=== PATIENT | female | born 1975 | race Caucasian/White ===

== ENCOUNTER 2022-03-04 09:54 | Inpatient (IN) ==
[2022-03-04 10:45] LABS: Basophils # (auto) 0.04 K/uL (0-0.2); Basophils % (auto) 0.2 %; Eosinophils # (auto) 0.14 K/uL (0-0.50); Eosinophils % (auto) 0.8 %; Immature Granulocytes # (auto) 0.05 K/uL (0.00-0.02); Immature Granulocytes % (auto) 0.3 %; Lymphocytes # (auto) 2.14 K/uL (1.2-3.4); Lymphocytes % (auto) 12.9 %; Mean Corpuscular Hemoglobin 29.8 pg (25.0-34.0); Mean Corpuscular Hgb Conc 35.7 g/dL (32.0-36.0); Mean Corpuscular Volume 83.3 fL (80.0-100.0); Mean Platelet Volume 9.8 fL (9.4-12.3); Monocytes % (auto) 7.8 %; Neutrophils # (auto) 12.92 K/uL (1.4-6.5); Platelet Count 301 K/uL (130-400); RDW Coefficient of Variation 11.9 % (11.5-14.5); RDW Standard Deviation 36.2 fL (36.4-46.3); Red Blood Count 5.04 M/uL (3.93-5.22); White Blood Count 16.59 K/ul (4.8-10.8)
[2022-03-04 10:57] LABS: INR 2.4 (0.9-1.1); Partial Thromboplastin Ratio 1.4; Partial Thromboplastin Time 37.9 Seconds (21.0-31.0); Prothrombin Time 24.1 Seconds (9.0-12.0)
--- NOTE | 2022-03-04 11:04 | XRay Report ---
XR chest 1V not portable CLINICAL HISTORY: Shortness of breath. COMPARISON STUDY: No previous studies for comparison. FINDINGS: Lung volumes are normal. There is possible mild right lower lung airspace opacity. This cou ld be due to overlying soft tissues. There is no pneumothorax or pleural effusion. Cardiac size is no rmal. Mediastinal contours are normal. There is no evidence for pulmonary edema. IMPRESSION: Possible mild right lower lung airspace opacity. This is likely due to overlying soft tis sues however an infectious process cannot be excluded. Radiographic follow-up is recommended. ACT 112: Negative or not required by law. Electronically signed by: Jose Angel Aguayo M.D. 03/04/2022 11:03 AM
[2022-03-04 11:07] LABS: Albumin Globulin Ratio 1.1 (0.9-2); Albumin Level 4.1 gm/dl (3.4-5.0); BUN Creatinine Ratio 15.2 (10-20); Bilirubin,Total 0.6 mg/dl (0.2-1.0); Calcium 9.2 mg/dl (8.5-10.1); Creatinine Clr Calc Pharmacy 100.3 ml/min; Est GFR (African American) 105.5 ml/min; Globulin 3.7 gm/dl (2.5-4.0); Magnesium 2.3 mg/dl (1.7-2.4); Potassium 3.7 mmol/L (3.5-5.1); Total Protein 7.8 gm/dl (6.0-8.3)
[2022-03-04 11:12] LABS: Troponin I High Sensitivity 3.7 pg/ml (0-14)
--- NOTE | 2022-03-04 12:17 | Emergency Department Note ---
Impression & Plan Pulmonary emboli, Leg pain, Factor V Leiden mutation, Shortness of breath ED Provider Note NAME: HENOK GARCIA AGE: 46 SEX: F : 1975 ARRIVES VIA: Walk-In INFORMANT: Patient ED PROVIDER(S): Darnell Snyder DO CHIEF COMPLAINT: Pleuritic chest pain and right calf pain HPI: Patient is a 46-year-old female with a past medical history DVT and factor V currently on Coumadin. She stopped her Coumadin last and on Wednesday she started with right calf pain. Throughout the weekend and the Wednesday and Wednesday she started having right upper chest wall and back pain. This is only present with breathing. Pain is currently a 6 out of 10. If she does not breathe she has no pain. She notes the pain does give her shortness of breath as when she tries to take her breath it hurts so she is taking smaller breaths. She notes today she was coughing and did cough up some blood. She just recently restarted her Coumadin as her breast biopsy was yesterday. She took 15 mg yesterday. Denies any belly pain, nausea, vomiting, or diarrhea. No fevers. No dysuria, urgency, or frequency. No other exacerbating or remitting factors. No exertional symptoms. ROS: See above HPI for pertinent positives & negatives. A total of 10 systems reviewed and were otherwise negative. PAST MEDICAL HISTORY:See Below PAST SURGICAL HISTORY:See Below FAMILY HISTORY:See Below SOCIAL HISTORY:See Below HOME MEDICATIONS:See Below ALLERGIES:See Below VITALS:See Below PHYSICAL EXAMINATION: GENERAL: Sitting up in bed, alert, well appearing, well nourished, no distress, non-toxic EYE EXAM: normal conjunctiva. OROPHARYNX: no exudate, no erythema, lips, buccal mucosa, and tongue normal and mucous membranes are moist NECK: supple, no nuchal rigidity, no adenopathy, non-tender LUNGS: Clear to auscultation. Normal chest wall mechanics HEART: no murmurs, S1 normal and S2 normal ABDOMEN: abdomen soft, non-tender, normo-active bowel sounds, no masses, no rebound or guarding. BACK: Back is symmetrical on inspection and there is no deformity, no midline tenderness, no CVA tenderness. SKIN: no rashes and no bruising UPPER EXTREMITIES: upper extremities are grossly normal. LOWER EXTREMITIES: Calves are equal bilateral NEURO EXAM: Normal sensorium, cranial nerves II-XII grossly intact, normal speech, no gross weakness of arms, no gross weakness of legs. No drift. Finger to nose intact. Gross sensation intact. MEDICAL DECISION MAKING: Patient is a 46-year-old female who presents ER for right-sided chest pain and leg pain. IV was established blood work was obtained. Labs show leukocytosis of 16,000 but no anemia. INR was therapeutic at 2.4. BMP along LFTs bilirubin and troponin was negative. COVID was negative. There is extensive right lower extremity DVT. CT angio of the chest shows extensive bilateral PEs. Patient was placed on heparin as she has not been therapeutic for 48 hours on Coumadin. Patient was updated bedside and discussed the hospitalist admitted for further work-up of the extensive bilateral PEs and DVTs. Triage Nursing notes reviewed. Limited review of prior medical records performed Vital Signs: reviewed and remarkable for no significant abnormalities Differential diagnosis: Cardiac ischemia, aortic dissection, pulmonary embolism, pneumothorax, pneumonia, pericarditis, myocarditis, esophageal rupture, GERD, cholecystitis, pancreatitis, musculoskeletal, as well as other pathologies. ER treatment provided: See below Diagnostics interpreted by me: ECG: Sinus rhythm rate 82 Normal axis No PVCs QTC 438 Cardiac Monitoring: An order was placed for continuous cardiac monitoring. The monitor shows a rate of 80 with sinus rhythm. Laboratory studies: As stated above and show below. Imaging studies: CT angio of the chest shows extensive bilateral PEs. Duplex of the lower extremity shows extensive DVT Consultation(s): Discussed with Rosanna for further evaluation Procedures: none Critical Care: I have personally spent 32 minutes of critical care time in the direct management of this patient. This includes bedside care, interpretation of diagnostic studies, and testing, discussion with consultants, patient, and family members, and other required patient management activities. This 32 minutes is in excess of all separately billable procedures. Past Med/Surg History Medical History (Updated 03/04/22 @ 17:11 by Stephany Estrada DO) Breast mass Factor V Leiden mutation (07/17/11) MTHFR gene mutation Surgical History (Updated 03/04/22 @ 13:12 by Lorena Iraheta PA-C) History of mandibular surgery Hx of left breast biopsy 2019 Hx of right breast biopsy 03/03/22 Family History (Updated 03/04/22 @ 13:13 by Lorena Iraheta PA-C) Daughter Cancer Social History Smoking Status: Former smoker Smoking End Date: 02/27/22; Tobacco Cessation Education Requested by Patient: No Hx Alcohol Use: Yes Alcohol type: hard liquor Hx Substance Use: No Preferred Language: Faroese Traffic Analysis Technician Required: No Beliefs That Will Affect Care: None Current Living Situation: Spouse Other Information That Helps Us Care for You: No Feels Safe at Home: Yes Safety Concerns: Feels Safe At This Time Assistive Devices: None Allergies Allergies Allergy/AdvReac Type Severity Reaction Status Date / Time No Known Allergies Allergy Unknown Verified 09/28/11 14:08 Home Meds Home Medications Medication Instructions Recorded Confirmed warfarin 5 mg tablet 5 mg PO DAILY 03/04/22 03/04/22 Results & Data (ED) Vital Signs Vital Signs - 24 hr 03/04/22 10:07 03/04/22 12:13 03/04/22 12:14 Temperature 36.5 C Temperature Source Temporal Artery Scan Pulse Rate 90 82 Pulse Rhythm Regular Respiratory Rate 18 18 18 Respiratory Effort / Characteristics Non-Labored Spontaneous Blood Pressure 124/83 Blood Pressure Mean 96 Pulse Oximetry 94 96 96 Oxygen Delivery Method Room Air Room Air Room Air Sepsis Recent Fever Within 48 Hours No Sepsis New/Unexplained Change in Mental Status No Sepsis Action Taken by Nursing No Action Required 03/04/22 12:15 03/04/22 14:00 Temperature Temperature Source Pulse Rate 87 77 Pulse Rhythm Respiratory Rate 18 16 Respiratory Effort / Characteristics Blood Pressure 131/94 133/94 Blood Pressure Mean 106 107 Pulse Oximetry 96 Oxygen Delivery Method Sepsis Recent Fever Within 48 Hours Sepsis New/Unexplained Change in Mental Status Sepsis Action Taken by Nursing Laboratory Data Result diagrams: 03/04/22 10:32 03/04/22 10:32 Lab Results 03/04/22 03/04/22 03/04/22 Range/Units 10:32 10:32 10:32 WBC 16.59 H (4.8-10.8) K/ul RBC 5.04 (3.93-5.22) M/uL Hgb 15.0 (12.0-16.0) g/dl Hct 42.0 (34.1-44.9) % MCV 83.3 (80.0-100.0) fL MCH 29.8 (25.0-34.0) pg MCHC 35.7 (32.0-36.0) g/dL RDW Std Deviation 36.2 L (36.4-46.3) fL RDW Coeff of Ruben 11.9 (11.5-14.5) % Plt Count 301 (130-400) K/uL MPV 9.8 (9.4-12.3) fL Immature Gran % (Auto) 0.3 % Neut % (Auto) 78.0 % Lymph % (Auto) 12.9 % Jones % (Auto) 7.8 % Eos % (Auto) 0.8 % Baso % (Auto) 0.2 % Neut # (Auto) 12.92 H (1.4-6.5) K/uL Lymph # (Auto) 2.14 (1.2-3.4) K/uL Jones # (Auto) 1.30 H (0.24-0.82) K/uL Eos # (Auto) 0.14 (0-0.50) K/uL Baso # (Auto) 0.04 (0-0.2) K/uL Immature Gran # (Auto) 0.05 H (0.00-0.02) K/uL PT 24.1 H (9.0-12.0) Seconds INR 2.4 H (0.9-1.1) APTT 37.9 H (21.0-31.0) Seconds PTT Ratio 1.4 Sodium 136 (136-145) mmol/L Potassium 3.7 (3.5-5.1) mmol/L Chloride 103 (98-107) mmol/L Carbon Dioxide 23 (21-32) mmol/L Anion Gap 10 (3-11) BUN 12 (6-23) mg/dl Creatinine 0.79 (0.6-1.2) mg/dl Est Cr Clr Drug Dosing 100.3 ml/min Est GFR ( Amer) 105.5 ml/min Est GFR (Non-Af Amer) 91.0 ml/min BUN/Creatinine Ratio 15.2 (10-20) Glucose 104 H (70-99(Fasting)) mg/dl Calcium 9.2 (8.5-10.1) mg/dl Magnesium 2.3 (1.7-2.4) mg/dl Total Bilirubin 0.6 (0.2-1.0) mg/dl AST 17 (13-39) U/L ALT 21 (7-52) U/L Alkaline Phosphatase 66 (34-104) U/L Troponin I High Sens 3.7 (0-14) pg/ml Total Protein 7.8 (6.0-8.3) gm/dl Albumin 4.1 (3.4-5.0) gm/dl Globulin 3.7 (2.5-4.0) gm/dl Albumin/Globulin Ratio 1.1 (0.9-2) SARS-CoV-2, RNA, NAAT (NEGATIVE) 03/04/22 Range/Units 13:30 WBC (4.8-10.8) K/ul RBC (3.93-5.22) M/uL Hgb (12.0-16.0) g/dl Hct (34.1-44.9) % MCV (80.0-100.0) fL MCH (25.0-34.0) pg MCHC (32.0-36.0) g/dL RDW Std Deviation (36.4-46.3) fL RDW Coeff of Ruben (11.5-14.5) % Plt Count (130-400) K/uL MPV (9.4-12.3) fL Immature Gran % (Auto) % Neut % (Auto) % Lymph % (Auto) % Jones % (Auto) % Eos % (Auto) % Baso % (Auto) % Neut # (Auto) (1.4-6.5) K/uL Lymph # (Auto) (1.2-3.4) K/uL Jones # (Auto) (0.24-0.82) K/uL Eos # (Auto) (0-0.50) K/uL Baso # (Auto) (0-0.2) K/uL Immature Gran # (Auto) (0.00-0.02) K/uL PT (9.0-12.0) Seconds INR (0.9-1.1) APTT (21.0-31.0) Seconds PTT Ratio Sodium (136-145) mmol/L Potassium (3.5-5.1) mmol/L Chloride (98-107) mmol/L Carbon Dioxide (21-32) mmol/L Anion Gap (3-11) BUN (6-23) mg/dl Creatinine (0.6-1.2) mg/dl Est Cr Clr Drug Dosing ml/min Est GFR ( Amer) ml/min Est GFR (Non-Af Amer) ml/min BUN/Creatinine Ratio (10-20) Glucose (70-99(Fasting)) mg/dl Calcium (8.5-10.1) mg/dl Magnesium (1.7-2.4) mg/dl Total Bilirubin (0.2-1.0) mg/dl AST (13-39) U/L ALT (7-52) U/L Alkaline Phosphatase (34-104) U/L Troponin I High Sens (0-14) pg/ml Total Protein (6.0-8.3) gm/dl Albumin (3.4-5.0) gm/dl Globulin (2.5-4.0) gm/dl Albumin/Globulin Ratio (0.9-2) SARS-CoV-2, RNA, NAAT NEGATIVE (NEGATIVE) Administered Medications Acetaminophen (Acetaminophen 325 Mg Tab) 650 mg PO Q4H PRN PRN Reason: Mild Pain Stop: 04/03/22 16:04 Last Admin: 03/04/22 16:57 Dose: 650 mg Documented By: ECTOR Heparin Sodium/Dextrose (Heparin Sodium/Dextrose) 25,000 units in 500 mls @ 25 mls/hr IV .Q20H [facility]; Protocol Stop: 04/03/22 12:59 Last Admin: 03/04/22 13:36 Dose: 1,250 units/hr, 25 mls/hr Documented By: ALEC Co-signed By: AMBROSIO Warfarin Sodium (Warfarin Sod 7.5 Mg Tab) 7.5 mg PO [id number] MINOR Stop: 04/03/22 16:29 Last Admin: 03/04/22 16:54 Dose: 7.5 mg Documented By: ECTOR Discontinued Medications Heparin Sodium/Dextrose (Heparin Iv Adult Wt-Based Standard *No* Bolus Protocol) 1 each IV ONE ONE; Protocol Stop: 03/04/22 12:41 Last Admin: 03/04/22 13:48 Dose: Not Given Documented By: AMBROSIO Ioversol (Optiray 320 500ml) 113 ml IV ONCE ONE Stop: 03/04/22 12:32 Last Admin: 03/04/22 12:32 Dose: 113 ml Documented By: PHOEBE Morphine Sulfate (Morphine Sulfate 4 Mg/Ml 1 Ml Carp\Vial) 4 mg IV NOW STA Stop: 03/04/22 12:42 Last Admin: 03/04/22 13:34 Dose: 4 mg Documented By: ALEC Imaging Data Radiologist's Impression: Chest X-Ray 03/04/22 10:13 XR chest 1V not portable CLINICAL HISTORY: Shortness of breath. COMPARISON STUDY: No previous studies for comparison. FINDINGS: Lung volumes are normal. There is possible mild right lower lung airspace opacity. This could be due to overlying soft tissues. There is no pneumothorax or pleural effusion. Cardiac size is normal. Mediastinal contours are normal. There is no evidence for pulmonary edema. IMPRESSION: Possible mild right lower lung airspace opacity. This is likely due to overlying soft tissues however an infectious process cannot be excluded. Radiographic follow-up is recommended. ACT 112: Negative or not required by law. Electronically signed by: Jose Angel Aguayo M.D. 03/04/2022 11:03 AM Chest CTA 03/04/22 12:13 CT angio chest PE protocol CLINICAL HISTORY: coughing up blood TECHNIQUE: Multidetector row helical CT of the chest was performed with angiographic protocol. Coronal and sagittal reformations were obtained. Coronal and sagittal MIPS were obtained from the axial data set and were submitted for review. Automated dose lowering techniques and/or adjustment according to patient size were utilized for this exam. CT DOSE: 463.03 mGy.cm Comparison: Comparison is made to chest radiograph 03/04/2022 FINDINGS: Lungs and pleura: Airspace opacity is seen in the right lower lobe. Heart and pericardium: The heart is unremarkable and in particular there is no evidence of right heart strain. Vessels: Numerous pulmonary emboli are seen in the bilateral lungs. Most prominently, there aren't lobar, segmental, and subsegmental emboli in the right lower lobe as well as segmental emboli in the right upper and middle lobes. Several left-sided subsegmental emboli are also seen. Mediastinum and satya: Unremarkable. Chest wall and lower neck: Unremarkable. Abdomen: Unremarkable. Bones: Unremarkable. IMPRESSION: Extensive bilateral pulmonary emboli most prominently involving the right lower lobe artery. Airspace opacity in the right lower lung may represent pulmonary i nfarct. No right heart strain is seen. ACT 112: Negative or not required by law. Electronically signed by: Lb Aldridge M.D. 03/04/2022 12:56 PM Venous Doppler Study 03/04/22 12:13 RIGHT LOWER EXTREMITY VENOUS DOPPLER HISTORY: Right lower extremity pain with history of pulmonary emboli to COMPARISON STUDY: None. FINDINGS: The right common femoral vein is patent. There is occlusive thrombus within the right superficial femoral, popliteal, posterior tibial, distal peroneal, and proximal anterior tibial veins. IMPRESSION: Right lower extremity DVT as described above. ACT 112: Negative or not required by law. Electronically signed by: Gm To M.D. 03/04/2022 1:42 PM Discharge Plan Visit Data Chief Complaint: Shortness of Breath/Dyspnea Stated Complaint: RT LEG,CHEST,BACK PAIN,PAINFUL BREATHING,ONWARARIN ED Provider: Darnell Snyder Discharge Problem: Pulmonary emboli, Leg pain, Factor V Leiden mutation, Shortness of breath Patient Disposition: Admitted As Inpatient Discharge Instructions Interventions: ED Discharge Assessment Last Done: 03/04/22 15:14
[2022-03-04] MEDS ORDERED: OPTIRAY 320 500ml IV ONE (12:31)
[2022-03-04] MEDS ORDERED: Heparin IV Adult Wt-Based Standard *NO* Bolus Protocol IV ONE (12:40)
[2022-03-04] MEDS ORDERED: MoRPHine SULFATE 4 MG/ML 1 ML CARP\\VIAL IV STA (12:41)
--- NOTE | 2022-03-04 12:57 | CT Scan Report ---
CT angio chest PE protocol CLINICAL HISTORY: coughing up blood TECHNIQUE: Multidetector row helical CT of the chest was performed with angiographic protocol. Fernandez l and sagittal reformations were obtained. Coronal and sagittal MIPS were obtained from the axial ok a set and were submitted for review. Automated dose lowering techniques and/or adjustment according to patient size were utilized for this exam. CT DOSE: 463.03 mGy.cm Comparison: Comparison is made to chest radiograph 03/04/2022 FINDINGS: Lungs and pleura: Airspace opacity is seen in the right lower lobe. Heart and pericardium: The heart is unremarkable and in particular there is no evidence of right hear t strain. Vessels: Numerous pulmonary emboli are seen in the bilateral lungs. Most prominently, there aren't lo bar, segmental, and subsegmental emboli in the right lower lobe as well as segmental emboli in the ri ght upper and middle lobes. Several left-sided subsegmental emboli are also seen. Mediastinum and satya: Unremarkable. Chest wall and lower neck: Unremarkable. Abdomen: Unremarkable. Bones: Unremarkable. IMPRESSION: Extensive bilateral pulmonary emboli most prominently involving the right lower lobe artery. Airspace opacity in the right lower lung may represent pulmonary infarct. No right heart strain is seen. ACT 112: Negative or not required by law. Electronically signed by: Lb Aldridge M.D. 03/04/2022 12:56 PM
--- NOTE | 2022-03-04 13:16 | History & Physical Report ---
Date of Service March 04, 2022 Assessment & Plan (1) Pulmonary emboli: (2) Pulmonary infarction: (3) DVT (deep venous thrombosis): (4) Factor V Leiden mutation: (5) MTHFR gene mutation: (6) Breast mass: (7) Obesity (BMI 30-39.9): Plan: - Observe overnight on tele - Will continue heparin gtt now, next dose of coumadin this evening for the bridge with anticoagulation: Routinely takes 5 mg Tues, Th, Sat and 7.5 mg on all other days - Consult pulm with hemoptysis and suspected pulmonary infarct - No hypoxia on admission, currently o2 sats at 96% on RA, monitor - Venous doppler of RLE with DVT within the right superficial femoral, popliteal, posterior tibial, distal peroneal and proximal anterior tibial veins - INR currently 2.4, trend with am labs - Pain control with tylenol, morphine sulfate, will add bowel regimen prn - Encourage mobility, BMI of 35, diet and exercise to be encouraged upon discharge CODE: FULL Dispo: From home, likely to remain in the hospital overnight History of Present Illness Chief Complaint: Shortness of breath, Right sided chest pain Primary Care Provider: Willow Mercedes, This is a 46 yo F with PMhx of Factor V Leiden mutation on Coumadin, who recently underwent Right breast biopsy on 03/03/22 for abnormal breast mammography. She had held coumadin since last , appropriately for 5 days prior to the procedure, and resumed taking Coumadin last night. She reports Right sided back and chest pain and right sided leg pain, which started yesterday after her procedure. Pt took Ibuprofen to attempt to alleviate pain. Pt has known history of multiple previous VTE. The first occurred in 1999 with her first . With her second again developed another DVT, and then again without so was then diagnosed with Factor V after blood work up. Reports her pain her pain started yesterday morning. She felt some right sided leg pain but ignored it mostly and wrapped it in KERRY. She underwent her surgical biopsy yesterday and had some right sided chest pain and though this was some sort of musculoskeletal issues, ie, chiropractor needs, and went to see them. After her adjustment felt slightly better. She thought this could possibly be a clot but had never had lung clot before. Last evening again she noticed worsening right sided chest pain, shortness of breath at rest, worse with laying down. She then noticed coughing with some blood tinged sputum. Today she noticed increased coughing with blood in the tissue, it is dark red in color, a small amount mixed with mucous. She denies this is over a teaspoon at a time or that it is worsening. Currently she rates pain in her right side of her chest as a 5/10. ER nurse is administering Morphine sulfate and starting heparin gtt. Pt was hesitant to even come to the hospital today but is agreeable to staying. INR today is 2.4. She was started on a heparin bridge in the ER for extensive bilateral PE prominently involving the right lower lobe artery. Airspace opacity in the right lower lung may represent pulmonary infarct. No right heart strain was seen. She is found to have elevated WBC of 16K. Pt smokes cigarettes- she stopped this past Wednesday and reports she is going to quit cold turkey. Drinks alcohol 1-2 x per year. She has 7 children and has 2 still living at home. Pt has a blended family with 3 of her own. One of her children is . Pt has a good support system, and sister and daughter are present at bedside. Allergies Allergy/AdvReac Type Severity Reaction Status Date / Time No Known Allergies Allergy Unknown Verified 09/28/11 14:08 Home Medications Medication Instructions Recorded Confirmed Type warfarin 5 mg tablet 5 mg PO DAILY 03/04/22 03/04/22 History Past Med/Surg History Medical History (Updated 03/04/22 @ 17:11 by Stephany Estrada DO) Breast mass Factor V Leiden mutation (07/17/11) MTHFR gene mutation Surgical History (Updated 03/04/22 @ 13:12 by Lorena Iraheta PA-C) History of mandibular surgery Hx of left breast biopsy 2019 Hx of right breast biopsy 03/03/22 Family History (Updated 03/04/22 @ 13:13 by Lorena Iraheta PA-C) Daughter Cancer Social History Smoking Status: Former smoker Smoking End Date: 02/27/22; Tobacco Cessation Education Requested by Patient: No Hx Alcohol Use: Yes Alcohol type: hard liquor Hx Substance Use: No Preferred Language: 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 Beliefs That Will Affect Care: None Current Living Situation: Spouse Other Information That Helps Us Care for You: No Feels Safe at Home: Yes Safety Concerns: Feels Safe At This Time Assistive Devices: None Review of Systems Review of Systems: Constitutional: No fever, sweats or chills Eyes: No diplopia, no worsening or blurred vision ENT: normal hearing, no trouble swallowing Respiratory: + cough, +sputum, + hemoptysis, + dyspnea on exertion Cardiovascular: No chest pain, tightness or palpitations Abdomen: No pain, nausea, vomiting, diarrhea or constipation Musculoskeletal: No joint pain, calf pain, swelling Neurologic: No weakness, numbness/tingling, or balance problems Psychiatric: No anxiety or depression Skin: No rash or itch Physical Exam Physical Exam: General: awake, alert, no apparent distress Head: Normocephalic, atraumatic ENT: PERRL, EOMI, no pharyngeal exudate, mucous membranes moist Chest: Clear to auscultation, not hypoxic and sats at 96% on RA. no adventitious breath sounds, pt has some pain with deep breaths Cardiac: Regular rate and rhythm, HR in mid 80s, no murmur, no JVD, normal peripheral pulses, good capillary refill Abdominal: NABS x 4 quadrants, soft, nondistended, nontender to palpation, no rebound or guarding Extremities: Normal inspection, no peripheral edema or erythema, pain with palpation of the right calf, no pain with the leg. Psych: Normal mood and affect Neuro: AAO x 3, strength intact bilaterally and rated 5/5, no motor deficits, speech is clear, no peripheral sensory deficits Results & Data Results & Data ([facility]) Vital Signs (Past 12 Hours) Vital Signs Temp Pulse Resp BP Pulse Ox O2 Del Method 03/04/22 12:15 87 18 131/94 96 03/04/22 12:14 18 96 Room Air 03/04/22 12:13 82 18 96 Room Air 03/04/22 10:07 36.5 C 90 18 124/83 94 Room Air Laboratory Results 03/04/22 03/04/22 03/04/22 10:32 10:32 10:32 WBC 16.59 H RBC 5.04 Hgb 15.0 Hct 42.0 MCV 83.3 MCH 29.8 MCHC 35.7 RDW Std Deviation 36.2 L RDW Coeff of Ruben 11.9 Plt Count 301 MPV 9.8 Immature Gran % (Auto) 0.3 Neut % (Auto) 78.0 Lymph % (Auto) 12.9 [place] % (Auto) 7.8 Eos % (Auto) 0.8 Baso % (Auto) 0.2 Neut # (Auto) 12.92 H Lymph # (Auto) 2.14 [place] # (Auto) 1.30 H Eos # (Auto) 0.14 Baso # (Auto) 0.04 Immature Gran # (Auto) 0.05 H PT 24.1 H INR 2.4 H APTT 37.9 H PTT Ratio 1.4 Sodium 136 Potassium 3.7 Chloride 103 Carbon Dioxide 23 Anion Gap 10 BUN 12 Creatinine 0.79 Est Cr Clr Drug Dosing 100.3 Est GFR ( Amer) 105.5 Est GFR (Non-Af Amer) 91.0 BUN/Creatinine Ratio 15.2 Glucose 104 H Calcium 9.2 Magnesium 2.3 Total Bilirubin 0.6 AST 17 ALT 21 Alkaline Phosphatase 66 Troponin I High Sens 3.7 Total Protein 7.8 Albumin 4.1 Globulin 3.7 Albumin/Globulin Ratio 1.1 Diagnostic Findings Chest X-Ray 03/04/22 10:13 XR chest 1V not portable CLINICAL HISTORY: Shortness of breath. COMPARISON STUDY: No previous studies for comparison. FINDINGS: Lung volumes are normal. There is possible mild right lower lung airspace opacity. This could be due to overlying soft tissues. There is no pneumothorax or pleural effusion. Cardiac size is normal. Mediastinal contours are normal. There is no evidence for pulmonary edema. IMPRESSION: Possible mild right lower lung airspace opacity. This is likely due to overlying soft tissues however an infectious process cannot be excluded. Radiographic follow-up is recommended. ACT 112: Negative or not required by law. Electronically signed by: Jose Angel Aguayo M.D. 03/04/2022 11:03 AM Chest CTA 03/04/22 12:13 CT angio chest PE protocol CLINICAL HISTORY: coughing up blood TECHNIQUE: Multidetector row helical CT of the chest was performed with angiographic protocol. Coronal and sagittal reformations were obtained. Coronal and sagittal MIPS were obtained from the axial data set and were submitted for review. Automated dose lowering techniques and/or adjustment according to patient size were utilized for this exam. CT DOSE: 463.03 mGy.cm Comparison: Comparison is made to chest radiograph 03/04/2022 FINDINGS: Lungs and pleura: Airspace opacity is seen in the right lower lobe. Heart and pericardium: The heart is unremarkable and in particular there is no evidence of right heart strain. Vessels: Numerous pulmonary emboli are seen in the bilateral lungs. Most prominently, there aren't lobar, segmental, and subsegmental emboli in the right lower lobe as well as segmental emboli in the right upper and middle lobes. Several left-sided subsegmental emboli are also seen. Mediastinum and satya: Unremarkable. Chest wall and lower neck: Unremarkable. Abdomen: Unremarkable. Bones: Unremarkable. IMPRESSION: Extensive bilateral pulmonary emboli most prominently involving the right lower lobe artery. Airspace opacity in the right lower lung may represent pulmonary infarct. No right heart strain is seen. ACT 112: Negative or not required by law. Electronically signed by: Lb Aldridge M.D. 03/04/2022 12:56 PM ECG Additional Comments: 04-MAR-2022 10:27:58 [facility]-EDSTAT ROUTINE RETRIEVAL Poor data quality, interpretation may be adversely affected Normal sinus rhythm Normal ECG No previous ECGs available 25mm/s10mm/[id number] 241CID: 3Referred by: ED Unconfirmed Vent. rate 82 BPM IN interval 146 ms QRS duration 74 ms QT/QTc 374/436 ms Supervising Physician Co-Signing Physician Notes I have seen and examined the patient and have discussed the case with the provider above. I agree with the assessment and plan as stated. 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 She is also a smoker. She reports some chest pain/leg swelling and exertional dyspnea. She reports a new cough that developed yesterday and some hemoptysis with this. There is no fever and clinical picture is not consistent with pneumonia. She has dermatitis as a side effect of roasterman wafarin use and is interested in switching to a DOAC. There is no contraindication to this and will plan to do this when transition off heparin is appropriate. Physical exam reveals an overweight female in no acute distress. There is no conversational dyspnea or increased work of breathing at rest. She is oxygenating well on room air. Heart rate is regular with S1/2 heard and no murmurs. There is no peripheral edema and she appears euvolemic. Lungs are clear to auscultation throughout without crackles, wheezes or rales. Skin appears dry and flaky on her face and on both of her feet. Labwork reveals a therapeutic INR at 2.4, She has a leukocytosis with WBC 16K with a left shift. BMP is WNL and sars cov-2 swab is negative. Imaging included a CTA chest with extensive bilateral pulmonary emboli most prominently involving the right lower lobe artery with an overlying airspace opacity in the RLL that may represent a pulmonary infarct. She is a smoker, however, which raises her chance of a pneumonia, so will order a procalcitonin. She has some chest and back pain which is consistent with a pulmonary infarct vs pneumonia. Pulm consult ordered. Agree with additional management as listed above. I did contact the patient and apprise her that she was fine to switch to apixaban at time of discharge. Breast path is pending. Smoking cessation strongly advised. DO Sean (1) DVT (deep venous thrombosis) DVT location: lower extremity Chronicity: acute Laterality: right
[2022-03-04] MEDS: HEPARIN SODIUM/DEXTROSE 25,000 UNITS/500 ML BAG IV SCH (13:36)
--- NOTE | 2022-03-04 13:43 | Ultrasound Report ---
RIGHT LOWER EXTREMITY VENOUS DOPPLER HISTORY: Right lower extremity pain with history of pulmonary emboli to COMPARISON STUDY: None. FINDINGS: The right common femoral vein is patent. There is occlusive thrombus within the right super ficial femoral, popliteal, posterior tibial, distal peroneal, and proximal anterior tibial veins. IMPRESSION: Right lower extremity DVT as described above. ACT 112: Negative or not required by law. Electronically signed by: Gm To M.D. 03/04/2022 1:42 PM
[2022-03-04] MEDS ORDERED: ACETAMINOPHEN 325 MG TAB PO PRN (16:05)
[2022-03-04] MEDS ORDERED: ONDANSETRON INJ 2 MG/ML 2 ML VIAL IV PRN (16:05)
[2022-03-04] MEDS ORDERED: WARFARIN SOD 7.5 MG TAB PO SCH (16:30)
--- NOTE | 2022-03-04 16:36 | Electrocardiogram Report ---
Test Reason : Blood Pressure : / mmHG Vent. Rate : 082 BPM Atrial Rate : 082 BPM P-R Int : 146 ms QRS Dur : 074 ms QT Int : 374 ms P-R-T Axes : 079 069 048 degrees QTc Int : 436 ms Poor data quality, interpretation may be adversely affected Normal sinus rhythm Normal ECG No previous ECGs available Confirmed by Gokul Mckee ([id number]) on 03/04/2022 4:36:08 PM Referred By: ED Confirmed By:Gokul Mckee
[2022-03-04] MEDS ORDERED: KETOROLAC TROMETHAMINE 15 MG/ML VIAL IV ONE (17:14)
[2022-03-04 19:44] LABS: Partial Thromboplastin Ratio 2.4
[2022-03-04 19:45] LABS: Partial Thromboplastin Time 66.3 Seconds (21.0-31.0)
[2022-03-04] MEDS ORDERED: KETOROLAC TROMETHAMINE 15 MG/ML VIAL ONE (19:59)
[2022-03-04] MEDS: MoRPHine SULFATE 2 MG/ML CARP IV PRN (22:09)
[2022-03-05] MEDS: MoRPHine SULFATE 2 MG/ML CARP IV PRN ×4 (00:52→17:28)
[2022-03-05] MEDS: MoRPHine SULFATE 4 MG/ML 1 ML CARP\\VIAL IV PRN ×4 (03:44→20:26)
[2022-03-05] MEDS: HEPARIN SODIUM/DEXTROSE 25,000 UNITS/500 ML BAG IV SCH ×2 (05:58→10:18)
--- NOTE | 2022-03-05 07:20 | Pulmonary Consultation ---
Date of Consultation March 05, 2022 Assessment & Plan (1) Pulmonary infarction: (2) Hypercoagulable state: (3) Pulmonary emboli: (4) Hemoptysis: (5) Factor V Leiden mutation: (6) DVT (deep venous thrombosis): Chronicity: acute DVT location: lower extremity Laterality: right Plan CT chest 03/04/2022 personally reviewed: Pulmonary embolism appreciated in the right main pulmonary artery and several subsegmental left-sided Peripheral groundglass opacity appreciated in the right lower lobe like representing infarct No mediastinal lymphadenopathy -- Acute bilateral pulmonary embolism, significant on right side with right lower lobe infarct Continue with heparin for the time being INR was therapeutic at presentation, she had stopped her warfarin for 5 days as she had a recent biopsy done It is difficult to ascertain whether this was failure of warfarin as patient has stopped taking warfarin for 5 days Pleuritic chest pain is from the pulmonary infarct on the right lower side -- Hemoptysis Likely secondary to pulmonary infarct from PE -- Right lower extremity DVT Continue with heparin --Factor V Leiden mutation Plan: Patient's INR is 2.9 today. Would recommend stopping the heparin drip given the INR already being therapeutic. Would recommend consultation with oncology to see what will be the right step regarding patient's anticoagulation Warfarin versus DOAC's. In patients with factor V Leiden mutation to accept not been well studied Hemoptysis should resolve with time. Would recommend antitussive medication [id number] Avoid flutter valve Incentive spirometry will be beneficial to the patient along with pain management for the pleuritic chest pain Case was discussed with Dr. Lopez Please note the above document was generated using voice recognition software. It may contain grammatical, syntax or spelling errors.Any formal questions or concerns about the content, text or information contained within the body of this dictation should be directly addressed to the provider for clarification. History of Present Illness Attending Physician: Stephany Estrada DO History of Present Illness 46-year-old female presented to the hospital with complaints of shortness of breath and hemoptysis Past medical history: Factor V Leiden mutation on Coumadin, recent right breast biopsy for abnormal mammogram Pulmonary consulted for PE and hemoptysis Patient had stopped Coumadin for 5 days prior to the breast biopsy and restarted taking it at night prior At the time of examination patient complained of right-sided chest pain especially when she takes a deep breath in. She was using flutter valve and was bringing up phlegm with blood in it. She has been on Coumadin for more than 20 years. Did not have clot at that time while she was on it. Did not is any fever or chills No dizziness, no nausea or vomiting, no headache, no blurry vision Social history: Active smoker Allergies Allergy/AdvReac Type Severity Reaction Status Date / Time No Known Allergies Allergy Unknown Verified 09/28/11 14:08 Home Medications Medication Instructions Recorded Confirmed Type warfarin 5 mg tablet 5 mg PO DAILY 03/04/22 03/04/22 History Patient History Medical History (Updated 03/05/22 @ 10:23 by Danni Lopes MD, [facility]) Breast mass Factor V Leiden mutation (07/17/11) MTHFR gene mutation Surgical History (Updated 03/04/22 @ 13:12 by Lorena Iraheta PA-C) History of mandibular surgery Hx of left breast biopsy 2019 Hx of right breast biopsy 03/03/22 Family History (Updated 03/04/22 @ 13:13 by Lorena Iraheta PA-C) Daughter Cancer Social History Smoking Status: Former smoker Smoking End Date: 02/27/22; Tobacco Cessation Education Requested by Patient: No Hx Alcohol Use: Yes Alcohol type: hard liquor Hx Substance Use: No Preferred Language: [place] 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 Beliefs That Will Affect Care: None Current Living Situation: Spouse Other Information That Helps Us Care for You: No Feels Safe at Home: Yes Safety Concerns: Feels Safe At This Time Assistive Devices: None Review of Systems Review of Systems: All systems reviewed & are unremarkable except as noted in HPI & below Physical Exam Physical Exam: Constitutional: No acute distress HEENT: EOMI, PERRLA Respiratory system: Decreased air entry bilaterally, more decreased on the right lower side, no wheeze, no rhonchi, positive crackles right lower lobe CVS: S1-S2 positive, no murmurs or gallops Abdomen: Soft, nontender, nondistended, positive bowel sounds x4 Extremities: +2 pulses bilaterally radialis/ dorsalis pedis, no cyanosis, no edema Neuro: Awake alert oriented x3 Psych: Normal mood and affect G/U: No Newman Skin: no rashes, warm and dry Lymphatic: no cervical or axillary lymphadenopathy Results & Data Results & Data ([facility]) Vital Signs (Past 12 Hours) Vital Signs Temp Pulse Pulse Resp BP Pulse Ox O2 Del Method 03/05/22 07:10 92 H 03/05/22 03:34 37.1 C 88 20 103/58 L 93 Room Air 03/05/22 00:32 83 03/04/22 22:54 36.7 C 76 20 102/69 95 Room Air 03/04/22 20:27 Room Air 03/04/22 19:15 36.6 C 81 20 107/72 96 Room Air Laboratory Results 03/04/22 10:32 03/04/22 10:32 PG Care Time/CCT Total # of Minutes Spent Total Time Spent with Patient: Total time spent is greater than 50% in coordination of care (as documented) at patient's floor/unit and/or counseling patient: Coding Level of Care Code 74961 Initial Inpt Care Lvl 3 Diagnoses Pulmonary infarction I26.99 Hypercoagulable state D68.59 Pulmonary emboli I26.99 Hemoptysis R04.2 Factor V Leiden mutation D68.51 DVT (deep venous thrombosis) I82.409 Chronicity: acute DVT location: lower extremity Laterality: right
[2022-03-05 07:22] LABS: Hematocrit (blood only) 40.3 % (34.1-44.9); Hemoglobin 14.1 g/dl (12.0-16.0); Mean Corpuscular Hemoglobin 29.4 pg (25.0-34.0); Mean Corpuscular Volume 84.1 fL (80.0-100.0); Mean Platelet Volume 9.7 fL (9.4-12.3); Platelet Count 311 K/uL (130-400); RDW Standard Deviation 36.8 fL (36.4-46.3); Red Blood Count 4.79 M/uL (3.93-5.22); White Blood Count 13.86 K/ul (4.8-10.8)
[2022-03-05 07:53] LABS: Calcium 8.8 mg/dl (8.5-10.1); Creatinine Clr Calc Pharmacy 85.9 ml/min; Est GFR (African American) 87.8 ml/min; Est GFR (Non-African American) 75.7 ml/min; Potassium 3.4 mmol/L (3.5-5.1)
[2022-03-05 07:58] LABS: INR 2.9 (0.9-1.1); Partial Thromboplastin Ratio 2.5; Prothrombin Time 28.8 Seconds (9.0-12.0)
[2022-03-05 08:14] LABS: Partial Thromboplastin Time 70.1 Seconds (21.0-31.0)
[2022-03-05] MEDS ORDERED: POTASSIUM CHLORIDE CRTAB 20 MEQ TABCR PO ONE (08:51)
[2022-03-05] MEDS ORDERED: DEXTROMETHORPHAN POLYMR COMPLX 30 MG/5 ML UDP PO SCH (09:00)
[2022-03-05] MEDS ORDERED: Nursing to Pharmacy Communication SCH (10:00)
[2022-03-05] MEDS ORDERED: DOCUSATE SODIUM 100 MG CAP PO PRN (10:36)
[2022-03-05] MEDS: POLYETHYLENE (MIRALAX) 17 GM PACK PO SCH (10:55)
--- NOTE | 2022-03-05 11:55 | Electrocardiogram Report ---
Test Reason : Blood Pressure : / mmHG Vent. Rate : 089 BPM Atrial Rate : 089 BPM P-R Int : 148 ms QRS Dur : 082 ms QT Int : 364 ms P-R-T Axes : 073 076 051 degrees QTc Int : 442 ms Normal sinus rhythm Normal ECG When compared with ECG of 04-MAR-2022 10:27, No significant change was found Confirmed by Aleks Suazo ([id number]) on 03/05/2022 11:55:35 AM Referred By: REFERRED SELF Confirmed By:Aleks Suazo
[2022-03-05] MEDS: guaiFENesin/DEXTROM SYRUP 200MG/20MG 10ML UDC PO SCH ×3 (12:14→20:26)
[2022-03-05 14:45] LABS: Partial Thromboplastin Ratio 1.7
--- NOTE | 2022-03-05 14:58 | Hospitalist Progress Note ---
Date of Service March 05, 2022 Assessment & Plan (1) Pulmonary emboli: (2) Pulmonary infarction: (3) DVT (deep venous thrombosis): (4) Factor V Leiden mutation: (5) MTHFR gene mutation: (6) Breast mass: (7) Obesity (BMI 30-39.9): Plan: Acute bilateral pulmonary embolism Right lower lobe pulmonary infarct Right lower extremity DVT Hemoptysis secondary to PE H/O factor V Leiden mutation ? Unsure if Coumadin failure --CTA:Extensive bilateral pulmonary emboli most prominently involving the right lower lobe artery. Airspace opacity in the right lower lung may represent pulmonary infarct. No right heart strain is seen. --Venous Doppler:Right lower extremity DVT. --ECHO: Left ventricle wall motion is normal. EF 60 to 65%. Right ventricle is normal in size and function. Doppler findings do not suggest pulmonary hypertension. No significant valvular heart disease. --INR 2.9 today --IV heparin, Coumadin on hold --Appreciate Pulmonology and Oncology Input --Discussed with Dr.Nilesh Cerrato on 03/05/22: Ok to hold Heparin/Coumadin given INR 2.9. Plan to start on Eliquis tomorrow. -Saturating well on room air Continue incentive spirometer Antitussives Right breast lesion S/P biopsy Pathology pending Follow-up as outpatient DVT Px: INR therapeutic CODE STATUS: Full Code Admission and Anticipated Discharge Date Admission Date: March 04, 2022 Subjective Patient is seen and examined at bedside States having pleuritic pain, dyspnea, minimal hemoptysis this morning Discussed with pulmonology and oncology today No other complaints Saturating well on room air Review of Systems Review of Systems: All systems reviewed & are unremarkable except as noted in Subjective Physical Exam Physical Exam: Physical Exam: Vitals signs as noted above General Appearance:Obese, no apparent distress Head: normocephalic, Atraumatic Eyes: normal inspection, EOMI Neck: supple, Trachea midline Respiratory/Chest: Decreased breath sounds, CTA, No accessory muscle use Cardiovascular: S1, S2, No murmur Abdomen/GI:Soft, Non tender, Bowel sounds present Extremities/Musculoskeletal:normal inspection, Trace edema Neurologic/Psych:AAOX3, grossly no focal neurological deficits Skin: normal color, warm Results & Data Results & Data ([facility]) Vital Signs (Past 12 Hours) Vital Signs Temp Pulse Pulse Resp BP Pulse Ox O2 Del Method 03/05/22 11:23 37 C 92 H 19 100/71 92 Room Air 03/05/22 07:34 Room Air 03/05/22 07:29 36.8 C 93 H 20 116/78 94 Room Air 03/05/22 07:10 92 H 03/05/22 03:34 37.1 C 88 20 103/58 L 93 Room Air Laboratory Results Short CBC 03/05/22 Range/Units 07:03 WBC 13.86 H (4.8-10.8) K/ul Hgb 14.1 (12.0-16.0) g/dl Hct 40.3 (34.1-44.9) % Plt Count 311 (130-400) K/uL BMP 03/05/22 07:03 Sodium 135 L Potassium 3.4 L Chloride 100 Carbon Dioxide 28 BUN 11 Creatinine 0.92 Glucose 118 H Calcium 8.8 (1) DVT (deep venous thrombosis) DVT location: lower extremity Chronicity: acute Laterality: right
[2022-03-05 15:01] LABS: Partial Thromboplastin Time 46.2 Seconds (21.0-31.0)
[2022-03-05] MEDS ORDERED: WARFARIN SOD 5 MG TAB PO SCH (16:00)
[2022-03-06] MEDS: MoRPHine SULFATE 4 MG/ML 1 ML CARP\\VIAL IV PRN ×2 (03:01→06:30)
[2022-03-06] MEDS: guaiFENesin/DEXTROM SYRUP 200MG/20MG 10ML UDC PO SCH ×4 (03:01→19:48)
[2022-03-06 06:25] LABS: Hematocrit (blood only) 37.7 % (34.1-44.9); Hemoglobin 12.9 g/dl (12.0-16.0); Mean Corpuscular Hemoglobin 29.2 pg (25.0-34.0); Mean Corpuscular Hgb Conc 34.2 g/dL (32.0-36.0); Mean Corpuscular Volume 85.3 fL (80.0-100.0); Mean Platelet Volume 9.7 fL (9.4-12.3); Platelet Count 313 K/uL (130-400); RDW Standard Deviation 37.6 fL (36.4-46.3); Red Blood Count 4.42 M/uL (3.93-5.22); White Blood Count 12.61 K/ul (4.8-10.8)
[2022-03-06 06:54] LABS: BUN Creatinine Ratio 11.8 (10-20); Calcium 8.8 mg/dl (8.5-10.1); Est GFR (African American) 110.6 ml/min; Est GFR (Non-African American) 95.4 ml/min; Magnesium 2.1 mg/dl (1.7-2.4)
[2022-03-06 07:18] LABS: INR 2.1 (0.9-1.1); Prothrombin Time 21.9 Seconds (9.0-12.0)
[2022-03-06] MEDS: POLYETHYLENE (MIRALAX) 17 GM PACK PO SCH (07:44)
--- NOTE | 2022-03-06 07:46 | Pulmonology Progress Note ---
Date of Service March 06, 2022 Assessment & Plan (1) Pulmonary infarction: (2) Hypercoagulable state: (3) Pulmonary emboli: (4) Hemoptysis: (5) Factor V Leiden mutation: (6) DVT (deep venous thrombosis): Chronicity: acute DVT location: lower extremity Laterality: right Plan CT chest 03/04/2022 personally reviewed: Pulmonary embolism appreciated in the right main pulmonary artery and several subsegmental left-sided Peripheral groundglass opacity appreciated in the right lower lobe like representing infarct No mediastinal lymphadenopathy -- Acute bilateral pulmonary embolism, significant on right side with right lower lobe infarct Continue with heparin for the time being INR was therapeutic at presentation, she had stopped her warfarin for 5 days as she had a recent biopsy done It is difficult to ascertain whether this was failure of warfarin as patient has stopped taking warfarin for 5 days Pleuritic chest pain is from the pulmonary infarct on the right lower side -- Hemoptysis Likely secondary to pulmonary infarct from PE -- Right lower extremity DVT Continue with heparin --Factor V Leiden mutation Plan: INR is 2.1 today. There has been gradual drop in hemoglobin likely because of the IV fluids that she got while she was in the hospital Would recommend continuing with heparin drip without bolus for another 24 hours to make sure that the hemoglobin is stable and if it is then he can be t ransition to oral anticoagulation Chest x-ray from today does show right lower lobe opacity which is most likely secondary to underlying pulmonary infarct. Continue to monitor Continue with incentive spirometry Case was discussed with Dr. Lopez Please note the above document was generated using voice recognition software. It may contain grammatical, syntax or spelling errors.Any formal questions or concerns about the content, text or information contained within the body of t his dictation should be directly addressed to the provider for clarification. Admission and Anticipated Discharge Date Admission Date: March 04, 2022 Subjective Patient seen and examined at bedside. No acute distress, no adverse events overnight Patient is still coughing up blood which is dark red. It has not increased in intensity. May be mild improvement Does complain of chest pain on taking deep breath on the right side as well as the right lower back. No significant shortness of breath Review of Systems Review of Systems: All systems reviewed & are unremarkable except as noted in Subjective Physical Exam Physical Exam: Constitutional: No acute distress HEENT: EOMI, PERRLA Respiratory system: Decreased air entry bilaterally, more decreased on the right lower side, no wheeze, no rhonchi, positive crackles right lower lobe CVS: S1-S2 positive, no murmurs or gallops Abdomen: Soft, nontender, nondistended, positive bowel sounds x4 Extremities: +2 pulses bilaterally radialis/ dorsalis pedis, no cyanosis, no edema Neuro: Awake alert oriented x3 Psych: Normal mood and affect G/U: No Newman Skin: no rashes, warm and dry Lymphatic: no cervical or axillary lymphadenopathy Results & Data Results & Data ([facility]) Vital Signs (Past 12 Hours) Vital Signs Temp Pulse Pulse Resp BP Pulse Ox O2 Del Method 03/06/22 07:28 116 H 03/06/22 07:28 Room Air 03/06/22 07:08 36.8 C 90 18 108/73 93 Room Air 03/06/22 02:54 36.9 C 89 20 110/70 93 Room Air 03/05/22 23:10 37.0 C 84 20 106/71 93 Room Air 03/05/22 21:36 Room Air Laboratory Results 03/06/22 05:37 03/06/22 05:37 PG Care Time/CCT Total # of Minutes Spent Total Time Spent with Patient: Total time spent is greater than 50% in coordination of care (as documented) at patient's floor/unit and/or counseling patient: Coding Level of Care Code 17894 Subseq Hosp Care Lvl 2 Diagnoses Pulmonary infarction I26.99 Hypercoagulable state D68.59 Pulmonary emboli I26.99 Hemoptysis R04.2 Factor V Leiden mutation D68.51 DVT (deep venous thrombosis) I82.409 Chronicity: acute DVT location: lower extremity Laterality: right
[2022-03-06] MEDS ORDERED: HEPARIN SODIUM/DEXTROSE 25,000 UNITS/500 ML BAG IV SCH (08:15)
--- NOTE | 2022-03-06 08:26 | XRay Report ---
XR chest 1V portable HISTORY: Shortness of breath. Abnormal chest x-ray. COMPARISON: Chest 03/04/2022. FINDINGS: No pneumothorax. No pleural effusions. There is a peripheral focal airspace opacity within the right lung base again noted. This has slightly progressed and likely represents the pulmonary inf arcts seen on the prior chest CT. The heart is normal in size. IMPRESSION: Slight progression of the right base airspace opacity. This favors a pulmonary infarct. ACT 112: Negative or not required by law. Electronically signed by: Gm To M.D. 03/06/2022 8:24 AM
[2022-03-06] MEDS ORDERED: Nursing to Pharmacy Communication SCH (08:30)
[2022-03-06] MEDS: Heparin IV Adult Wt-Based Standard *NO* Bolus Protocol IV SCH ×4 (08:32→09:25)
[2022-03-06] MEDS: HEPARIN SODIUM/DEXTROSE 25,000 UNITS/500 ML BAG IV SCH (09:07)
--- NOTE | 2022-03-06 14:59 | Hospitalist Progress Note ---
Date of Service March 06, 2022 Assessment & Plan (1) Pulmonary emboli: (2) Pulmonary infarction: (3) DVT (deep venous thrombosis): (4) Factor V Leiden mutation: (5) MTHFR gene mutation: (6) Breast mass: (7) Obesity (BMI 30-39.9): Plan: Acute bilateral pulmonary embolism Right lower lobe pulmonary infarct Right lower extremity DVT Hemoptysis secondary to PE H/O factor V Leiden mutation ? Unsure if Coumadin failure --CTA:Extensive bilateral pulmonary emboli most prominently involving the right lower lobe artery. Airspace opacity in the right lower lung may represent pulmonary infarct. No right heart strain is seen. --Venous Doppler:Right lower extremity DVT. --ECHO: Left ventricle wall motion is normal. EF 60 to 65%. Right ventricle is normal in size and function. Doppler findings do not suggest pulmonary hypertension. No significant valvular heart disease. --INR 2.1 today --Coumadin discontinued --Appreciate Pulmonology and Oncology Input --Discussed with Dr.Nilesh Cerrato on 03/05/22: Ok to hold Heparin/Coumadin given INR 2.9. Plan to start on Eliquis as able -Saturating well on room air Continue incentive spirometer Antitussives Restarted IV heparin today Monitor CBC Plan to transition to oral anticoagulation as able Right breast lesion S/P biopsy Pathology pending Follow-up as outpatient DVT Px: IV Heparin CODE STATUS: Full Code Admission and Anticipated Discharge Date Admission Date: March 04, 2022 Subjective Patient is seen and examined at bedside Pleuritic pain, cough slightly less today Also has minimal hemoptysis No new complaints Denies any dyspnea, dizziness, nausea, abdominal pain Discussed with pulmonology today Started on IV heparin No other bleeding issues Review of Systems Review of Systems: All systems reviewed & are unremarkable except as noted in Subjective Physical Exam Physical Exam: Physical Exam: Vitals signs as noted above General Appearance:Obese, no apparent distress Head: normocephalic, Atraumatic Eyes: normal inspection, EOMI Neck: supple, Trachea midline Respiratory/Chest: Decreased breath sounds, CTA, No accessory muscle use Cardiovascular: S1, S2, No murmur Abdomen/GI:Soft, Non tender, Bowel sounds present Extremities/Musculoskeletal:normal inspection, Trace edema Neurologic/Psych:AAOX3, grossly no focal neurological deficits Skin: normal color, warm Results & Data Results & Data ([facility]) Vital Signs (Past 12 Hours) Vital Signs Temp Pulse Pulse Resp BP Pulse Ox O2 Del Method 03/06/22 12:09 36.6 C 92 H 19 116/76 95 Room Air 03/06/22 07:28 116 H 03/06/22 07:28 Room Air 03/06/22 07:08 36.8 C 90 18 108/73 93 Room Air Laboratory Results Short CBC 03/06/22 Range/Units 05:37 WBC 12.61 H (4.8-10.8) K/ul Hgb 12.9 (12.0-16.0) g/dl Hct 37.7 (34.1-44.9) % Plt Count 313 (130-400) K/uL [facility] 03/06/22 05:37 Sodium 132 L Potassium 4.0 Chloride 99 Carbon Dioxide 25 BUN 9 Creatinine 0.76 Glucose 117 H Calcium 8.8 (1) DVT (deep venous thrombosis) DVT location: lower extremity Chronicity: acute Laterality: right
[2022-03-06 15:35] LABS: Partial Thromboplastin Ratio 2.7
[2022-03-06] MEDS: MoRPHine SULFATE 2 MG/ML CARP IV PRN ×3 (15:40→21:40)
[2022-03-06 16:29] LABS: Partial Thromboplastin Time 73.2 Seconds (21.0-31.0)
[2022-03-06] MEDS: oxyCODONE/ACETAMINOPHEN 5mg/325mg TAB PO PRN (17:15)
[2022-03-06 23:27] LABS: Partial Thromboplastin Ratio 2.3
[2022-03-06 23:35] LABS: Partial Thromboplastin Time 64.5 Seconds (21.0-31.0)
[2022-03-07] MEDS: MoRPHine SULFATE 2 MG/ML CARP IV PRN ×8 (02:26→22:29)
[2022-03-07] MEDS: HEPARIN SODIUM/DEXTROSE 25,000 UNITS/500 ML BAG IV SCH (05:32)
[2022-03-07] MEDS: guaiFENesin/DEXTROM SYRUP 200MG/20MG 10ML UDC PO SCH ×4 (05:44→22:47)
[2022-03-07 07:01] LABS: Hematocrit (blood only) 38.3 % (34.1-44.9); Hemoglobin 13.2 g/dl (12.0-16.0); Mean Corpuscular Hemoglobin 29.5 pg (25.0-34.0); Mean Corpuscular Hgb Conc 34.5 g/dL (32.0-36.0); Mean Corpuscular Volume 85.7 fL (80.0-100.0); Mean Platelet Volume 9.5 fL (9.4-12.3); Platelet Count 335 K/uL (130-400); RDW Coefficient of Variation 11.9 % (11.5-14.5); RDW Standard Deviation 37.2 fL (36.4-46.3); Red Blood Count 4.47 M/uL (3.93-5.22); White Blood Count 10.64 K/ul (4.8-10.8)
--- NOTE | 2022-03-07 07:20 | Pulmonology Progress Note ---
Date of Service March 07, 2022 Assessment & Plan (1) Pulmonary infarction: (2) Hypercoagulable state: (3) Pulmonary emboli: (4) Hemoptysis: (5) Factor V Leiden mutation: (6) DVT (deep venous thrombosis): Chronicity: acute DVT location: lower extremity Laterality: right Plan CT chest 03/04/2022 personally reviewed: Pulmonary embolism appreciated in the right main pulmonary artery and several subsegmental left-sided Peripheral groundglass opacity appreciated in the right lower lobe like representing infarct No mediastinal lymphadenopathy -- Acute bilateral pulmonary embolism, significant on right side with right lower lobe infarct Continue with heparin for the time being INR was therapeutic at presentation, she had stopped her warfarin for 5 days as she had a recent biopsy done It is difficult to ascertain whether this was failure of warfarin as patient has stopped taking warfarin for 5 days Pleuritic chest pain is from the pulmonary infarct on the right lower side -- Hemoptysis Likely secondary to pulmonary infarct from PE -- Right lower extremity DVT Continue with heparin --Factor V Leiden mutation Plan: Patient still having small amount of hemoptysis. It does not increase in amount She has been on anticoagulation for 3 days now. No drop in hemoglobin. I think it would be reasonable to transition it to apixaban. Was still highly recommend to continue with incentive spirometry, Case was discussed with Dr. Lopez Please note the above document was generated using voice recognition software. It may contain grammatical, syntax or spelling errors.Any formal questions or concerns about the content, text or information contained within the body of this dictation should be directly addressed to the provider for clarification. Admission and Anticipated Discharge Date Admission Date: March 04, 2022 Subjective Patient seen and examined at bedside. No acute distress, no adverse events overnight Does complain of chest pain on the right side in the right lower back. Has been using incentive spirometry and going up to 1000 mL Coughing up dark blood. It does not increase in intensity. Fair appetite No nausea or vomiting No headache Review of Systems Review of Systems: All systems reviewed & are unremarkable except as noted in Subjective Physical Exam Physical Exam: Constitutional: No acute distress HEENT: EOMI, PERRLA Respiratory system: Decreased air entry bilaterally, more decreased on the right lower side, no wheeze, no rhonchi, positive crackles right lower lobe CVS: S1-S2 positive, no murmurs or gallops Abdomen: Soft, nontender, nondistended, positive bowel sounds x4 Extremities: +2 pulses bilaterally radialis/ dorsalis pedis, no cyanosis, no edema Neuro: Awake alert oriented x3 Psych: Normal mood and affect G/U: No Newman Skin: no rashes, warm and dry Lymphatic: no cervical or axillary lymphadenopathy Results & Data Results & Data ([facility]) Vital Signs (Past 12 Hours) Vital Signs Temp Pulse Pulse Resp BP Pulse Ox O2 Del Method 03/07/22 07:13 37.3 C 85 18 108/70 94 Room Air 03/07/22 03:08 36.7 C 81 16 103/69 92 Room Air 03/06/22 23:09 63 03/06/22 22:45 36.5 C 80 16 110/69 93 Room Air Laboratory Results 03/07/22 06:11 PG Care Time/CCT Total # of Minutes Spent Total Time Spent with Patient: Total time spent is greater than 50% in coordination of care (as documented) at patient's floor/unit and/or counseling patient: Coding Level of Care Code 33072 Subseq Hosp Care Lvl 2 Diagnoses Pulmonary infarction I26.99 Hypercoagulable state D68.59 Pulmonary emboli I26.99 Hemoptysis R04.2 Factor V Leiden mutation D68.51 DVT (deep venous thrombosis) I82.409 Chronicity: acute DVT location: lower extremity Laterality: right
[2022-03-07 07:21] LABS: BUN Creatinine Ratio 13.9 (10-20); Calcium 9.1 mg/dl (8.5-10.1); Est GFR (African American) 105.5 ml/min
[2022-03-07 07:44] LABS: INR 1.8 (0.9-1.1); Partial Thromboplastin Ratio 1.9; Prothrombin Time 18.1 Seconds (9.0-12.0)
[2022-03-07 08:56] LABS: Partial Thromboplastin Time 52.4 Seconds (21.0-31.0)
[2022-03-07] MEDS: POLYETHYLENE (MIRALAX) 17 GM PACK PO SCH (09:27)
[2022-03-07] MEDS: APIXABAN 5 MG TABLET PO SCH ×2 (10:28→20:45)
[2022-03-07] MEDS: oxyCODONE/ACETAMINOPHEN 5mg/325mg TAB PO PRN (10:36)
--- NOTE | 2022-03-07 16:24 | Hospitalist Progress Note ---
Date of Service March 07, 2022 Assessment & Plan (1) Pulmonary emboli: (2) Pulmonary infarction: (3) DVT (deep venous thrombosis): (4) Factor V Leiden mutation: (5) MTHFR gene mutation: (6) Breast mass: (7) Obesity (BMI 30-39.9): Plan: Acute bilateral pulmonary embolism Right lower lobe pulmonary infarct Right lower extremity DVT Hemoptysis secondary to PE H/O factor V Leiden mutation ? Unsure if Coumadin failure --CTA:Extensive bilateral pulmonary emboli most prominently involving the right lower lobe artery. Airspace opacity in the right lower lung may represent pulmonary infarct. No right heart strain is seen. --Venous Doppler:Right lower extremity DVT. --ECHO: Left ventricle wall motion is normal. EF 60 to 65%. Right ventricle is normal in size and function. Doppler findings do not suggest pulmonary hypertension. No significant valvular heart disease. --INR 2.9>2.1>1.8 --Coumadin discontinued --Appreciate Pulmonology and Oncology Input --Discussed with Dr.Nilesh Cerrato on 03/05/22: Ok to hold Heparin/Coumadin given INR 2.9. Plan to start on Eliquis as able -Saturating well on room air Continue incentive spirometer Antitussives IV heparin transitioned to Eliquis Monitor CBC Hb stable Will need follow-up with pulmonology and repeated chest x-ray with CBC as outpatient Patient prefers to be discharged tomorrow as she still requires IV pain medications to control her pain Right breast lesion S/P biopsy Pathology pending Follow-up as outpatient DVT Px: Apixaban CODE STATUS: Full Code Admission and Anticipated Discharge Date Admission Date: March 04, 2022 Subjective Patient is seen and examined at bedside Still has hemoptysis with dark Pleuritic pain controlled with pain medication Denies any dyspnea, dizziness, nausea, abdominal pain Discussed with pulmonology today Review of Systems Review of Systems: All systems reviewed & are unremarkable except as noted in Subjective Physical Exam Physical Exam: Physical Exam: Vitals signs as noted above General Appearance:Obese, no apparent distress Head: normocephalic, Atraumatic Eyes: normal inspection, EOMI Neck: supple, Trachea midline Respiratory/Chest: Decreased breath sounds, CTA, No accessory muscle use Cardiovascular: S1, S2, No murmur Abdomen/GI:Soft, Non tender, Bowel sounds present Extremities/Musculoskeletal:normal inspection, Trace edema Neurologic/Psych:AAOX3, grossly no focal neurological deficits Skin: normal color, warm Results & Data Results & Data ([facility]) Vital Signs (Past 12 Hours) Vital Signs Temp Pulse Resp BP Pulse Ox O2 Del Method 03/07/22 15:37 36.8 C 85 18 111/76 95 Room Air 03/07/22 11:12 36.8 C 84 18 100/72 94 Room Air 03/07/22 07:13 37.3 C 85 18 108/70 94 Room Air Laboratory Results Short CBC 03/07/22 Range/Units 06:11 WBC 10.64 (4.8-10.8) K/ul Hgb 13.2 (12.0-16.0) g/dl Hct 38.3 (34.1-44.9) % Plt Count 335 (130-400) K/uL [facility] 03/07/22 06:11 Sodium 133 L Potassium 4.0 Chloride 97 L Carbon Dioxide 28 BUN 11 Creatinine 0.79 Glucose 135 H Calcium 9.1 (1) DVT (deep venous thrombosis) DVT location: lower extremity Chronicity: acute Laterality: right
[2022-03-08] MEDS: guaiFENesin/DEXTROM SYRUP 200MG/20MG 10ML UDC PO SCH ×2 (03:30→10:36)
[2022-03-08] MEDS: MoRPHine SULFATE 2 MG/ML CARP IV PRN (03:30)
--- NOTE | 2022-03-08 07:30 | Pulmonology Progress Note ---
Date of Service March 08, 2022 Assessment & Plan (1) Pulmonary infarction: (2) Hypercoagulable state: (3) Pulmonary emboli: (4) Hemoptysis: (5) Factor V Leiden mutation: (6) DVT (deep venous thrombosis): Chronicity: acute DVT location: lower extremity Laterality: right Plan CT chest 03/04/2022 personally reviewed: Pulmonary embolism appreciated in the right main pulmonary artery and several subsegmental left-sided Peripheral groundglass opacity appreciated in the right lower lobe like representing infarct No mediastinal lymphadenopathy -- Acute bilateral pulmonary embolism, significant on right side with right lower lobe infarct Continue with heparin for the time being INR was therapeutic at presentation, she had stopped her warfarin for 5 days as she had a recent biopsy done It is difficult to ascertain whether this was failure of warfarin as patient has stopped taking warfarin for 5 days Pleuritic chest pain is from the pulmonary infarct on the right lower side -- Hemoptysis Likely secondary to pulmonary infarct from PE -- Right lower extremity DVT Continue with heparin --Factor V Leiden mutation Plan: H&H stable Continue with apixaban Continue with incentive spirometry, pain medication for the pleuritic right- sided chest pain Chest x-ray in 10 days Case was discussed with Dr. Lopez Please note the above document was generated using voice recognition software. It may contain grammatical, syntax or spelling errors.Any formal questions or concerns about the content, text or information contained within the body of this dictation should be directly addressed to the provider for clarification. Admission and Anticipated Discharge Date Admission Date: March 04, 2022 Subjective Patient seen and examined at bedside. No acute distress, no adverse events overnight Still complains of pain on the right side lower thoracic back when she takes deep breath Bringing up dark red phlegm which is decreasing in intensity since coming to the hospital Fair appetite No nausea vomiting No headache Review of Systems Review of Systems: All systems reviewed & are unremarkable except as noted in Subjective Physical Exam Physical Exam: Constitutional: No acute distress HEENT: EOMI, PERRLA Respiratory system: Decreased air entry bilaterally, more decreased on the right lower side, no wheeze, no rhonchi, positive crackles right lower lobe CVS: S1-S2 positive, no murmurs or gallops Abdomen: Soft, nontender, nondistended, positive bowel sounds x4 Extremities: +2 pulses bilaterally radialis/ dorsalis pedis, no cyanosis, no edema Neuro: Awake alert oriented x3 Psych: Normal mood and affect G/U: No Newman Skin: no rashes, warm and dry Lymphatic: no cervical or axillary lymphadenopathy Results & Data Results & Data ([facility]) Vital Signs (Past 12 Hours) Vital Signs Temp Pulse Pulse Resp BP BP Pulse Ox 03/08/22 03:30 36.8 C 70 20 108/73 92 03/07/22 23:22 36.8 C 86 18 103/69 94 03/07/22 22:46 86 03/07/22 19:33 37.2 C 89 16 110/76 94 O2 Del Method 03/08/22 03:30 Room Air 03/07/22 23:22 Room Air 03/07/22 22:46 03/07/22 19:33 Room Air Laboratory Results 03/08/22 07:14 03/08/22 07:14 PG Care Time/CCT Total # of Minutes Spent Total Time Spent with Patient: Total time spent is greater than 50% in coordination of care (as documented) at patient's floor/unit and/or counseling patient: Coding Level of Care Code 28176 Subseq Hosp Care Lvl 2 Diagnoses Pulmonary infarction I26.99 Hypercoagulable state D68.59 Pulmonary emboli I26.99 Hemoptysis R04.2 Factor V Leiden mutation D68.51 DVT (deep venous thrombosis) I82.409 Chronicity: acute DVT location: lower extremity Laterality: right
[2022-03-08 07:58] LABS: Hematocrit (blood only) 37.8 % (34.1-44.9); Mean Corpuscular Hemoglobin 29.2 pg (25.0-34.0); Mean Corpuscular Hgb Conc 34.4 g/dL (32.0-36.0); Mean Corpuscular Volume 84.9 fL (80.0-100.0); Mean Platelet Volume 9.4 fL (9.4-12.3); Platelet Count 388 K/uL (130-400); RDW Coefficient of Variation 11.9 % (11.5-14.5); RDW Standard Deviation 36.6 fL (36.4-46.3); Red Blood Count 4.45 M/uL (3.93-5.22); White Blood Count 11.44 K/ul (4.8-10.8)
[2022-03-08] MEDS: APIXABAN 5 MG TABLET PO SCH (07:58)
[2022-03-08] MEDS: POLYETHYLENE (MIRALAX) 17 GM PACK PO SCH (08:06)
[2022-03-08] MEDS: oxyCODONE/ACETAMINOPHEN 5mg/325mg TAB PO PRN (08:14)
[2022-03-08 08:17] LABS: BUN Creatinine Ratio 14.1 (10-20); Creatinine Clr Calc Pharmacy 114.2 ml/min; Est GFR (African American) 120.1 ml/min; Est GFR (Non-African American) 103.6 ml/min; Potassium 4.4 mmol/L (3.5-5.1)
[2022-03-08] MEDS ORDERED: MoRPHine SULFATE 2 MG/ML CARP IV PRN (08:43)
[2022-03-08 11:50] LABS: Hematocrit (blood only) 37.6 % (34.1-44.9)
--- NOTE | 2022-03-08 12:23 | Hospitalist Progress Note ---
Date of Service March 08, 2022 Assessment & Plan (1) Pulmonary emboli: (2) Pulmonary infarction: (3) DVT (deep venous thrombosis): (4) Factor V Leiden mutation: (5) MTHFR gene mutation: (6) Breast mass: (7) Obesity (BMI 30-39.9): Plan: Acute bilateral pulmonary embolism Right lower lobe pulmonary infarct Right lower extremity DVT Hemoptysis secondary to PE H/O factor V Leiden mutation ? Unsure if Coumadin failure --CTA:Extensive bilateral pulmonary emboli most prominently involving the right lower lobe artery. Airspace opacity in the right lower lung may represent pulmonary infarct. No right heart strain is seen. --Venous Doppler:Right lower extremity DVT. --ECHO: Left ventricle wall motion is normal. EF 60 to 65%. Right ventricle is normal in size and function. Doppler findings do not suggest pulmonary hypertension. No significant valvular heart disease. --INR 2.9>2.1>1.8 --Coumadin discontinued --Appreciate Pulmonology and Oncology Input --Discussed with Dr.Nilesh Cerrato on 03/05/22: Ok to hold Heparin/Coumadin given INR 2.9. Plan to start on Eliquis as able -Saturating well on room air Continue incentive spirometer Antitussives IV heparin transitioned to Eliquis Monitor CBC Hb stable Advised to follow-up with pulmonology with repeated chest x-ray with CBC as outpatient Right breast lesion S/P biopsy Pathology pending Follow-up as outpatient DVT Px: Apixaban CODE STATUS: Full Code Admission and Anticipated Discharge Date Admission Date: March 04, 2022 Subjective Patient is seen and examined at bedside Pleuritic pain much improve Still has minimal Hemoptysis Discussed with Denies any dyspnea, dizziness, nausea, abdominal pain Hb stable Review of Systems Review of Systems: All systems reviewed & are unremarkable except as noted in Subjective Physical Exam Physical Exam: Physical Exam: Vitals signs as noted above General Appearance:Obese, no apparent distress Head: normocephalic, Atraumatic Eyes: normal inspection, EOMI Neck: supple, Trachea midline Respiratory/Chest: Decreased breath sounds, CTA, No accessory muscle use Cardiovascular: S1, S2, No murmur Abdomen/GI:Soft, Non tender, Bowel sounds present Extremities/Musculoskeletal:normal inspection, Trace edema Neurologic/Psych:AAOX3, grossly no focal neurological deficits Skin: normal color, warm Results & Data Results & Data ([facility]) Vital Signs (Past 12 Hours) Vital Signs Temp Pulse Resp BP BP Pulse Ox O2 Del Method 03/08/22 11:48 36.7 C 82 18 114/68 94 Room Air 03/08/22 08:00 Room Air 03/08/22 07:59 36.8 C 90 18 109/74 94 Room Air 03/08/22 03:30 36.8 C 70 20 108/73 92 Room Air Laboratory Results Short CBC 03/08/22 03/08/22 Range/Units 07:14 11:43 WBC 11.44 H (4.8-10.8) K/ul Hgb 13.0 13.0 (12.0-16.0) g/dl Hct 37.8 37.6 (34.1-44.9) % Plt Count 388 (130-400) K/uL BMP 03/08/22 07:14 Sodium 133 L Potassium 4.4 Chloride 99 Carbon Dioxide 26 BUN 10 Creatinine 0.71 Glucose 109 H Calcium 9.0 (1) DVT (deep venous thrombosis) DVT location: lower extremity Chronicity: acute Laterality: right
--- NOTE | 2022-03-08 12:43 | Discharge Summary ---
Date of Service March 08, 2022 Admission HPI Per Admitting Provider This is a 46 yo F with PMhx of Factor V Leiden mutation on Coumadin, who recently underwent Right breast biopsy on 03/03/22 for abnormal breast mammography. She had held coumadin since last , appropriately for 5 days prior to the procedure, and resumed taking Coumadin last night. She reports Right sided back and chest pain and right sided leg pain, which started yesterday after her procedure. Pt took Ibuprofen to attempt to alleviate pain. Pt has known history of multiple previous VTE. The first occurred in 1999 with her first . With her second again developed another DVT, and then again without so was then diagnosed with Factor V after blood work up. Reports her pain her pain started yesterday morning. She felt some right sided leg pain but ignored it mostly and wrapped it in KERRY. She underwent her surgical biopsy yesterday and had some right sided chest pain and though this was some sort of musculoskeletal issues, ie, chiropractor needs, and went to see them. After her adjustment felt slightly better. She thought this could possibly be a clot but had never had lung clot before. Last evening again she noticed worsening right sided chest pain, shortness of breath at rest, worse with laying down. She then noticed coughing with some blood tinged sputum. Today she noticed increased coughing with blood in the tissue, it is dark red in color, a small amount mixed with mucous. She denies this is over a teaspoon at a time or that it is worsening. Currently she rates pain in her right side of her chest as a 5/10. ER nurse is administering Morphine sulfate and starting heparin gtt. Pt was hesitant to even come to the hospital today but is agreeable to staying. INR today is 2.4. She was started on a heparin bridge in the ER for extensive b ilateral PE prominently involving the right lower lobe artery. Airspace opacity in the right lower lung may represent pulmonary infarct. No right heart strain was seen. She is found to have elevated WBC of 16K. Pt smokes cigarettes- she stopped this past Wednesday and reports she is going to quit cold turkey. Drinks alcohol 1-2 x per year. She has 7 children and has 2 still living at home. Pt has a blended family with 3 of her own. One of her children is . Pt has a good support system, and sister and daughter are present at bedside. Principal Diagnosis Acute bilateral pulmonary embolism Right lower lobe pulmonary infarct Right lower extremity Deep Vein Thrombosis Discharge Data Allergies Allergy/AdvReac Type Severity Reaction Status Date / Time No Known Allergies Allergy Unknown Verified 09/28/11 14:08 Consultations 03/04/22 12:40 ED Decision to Admit Stat 03/04/22 16:05 Consult Pulmonology Routine Procedures Performed Physical Exam Physical Exam: General: awake, alert, no apparent distress Head: Normocephalic, atraumatic ENT: PERRL, EOMI, no pharyngeal exudate, mucous membranes moist Chest: Clear to auscultation, not hypoxic and sats at 96% on RA. no adventitious breath sounds, pt has some pain with deep breaths Cardiac: Regular rate and rhythm, HR in mid 80s, no murmur, no JVD, normal peripheral pulses, good capillary refill Abdominal: NABS x 4 quadrants, soft, nondistended, nontender to palpation, no rebound or guarding Extremities: Normal inspection, no peripheral edema or erythema, pain with palpation of the right calf, no pain with the leg. Psych: Normal mood and affect Neuro: AAO x 3, strength intact bilaterally and rated 5/5, no motor deficits, speech is clear, no peripheral sensory deficits Ordered Studies 03/04/22 12:13 CT angio chest PE protocol Stat US venous doppler LE RT Stat Hospital Course (1) Pulmonary emboli: (2) Pulmonary infarction: (3) DVT (deep venous thrombosis): (4) Factor V Leiden mutation: (5) MTHFR gene mutation: (6) Breast mass: (7) Obesity (BMI 30-39.9): Acute bilateral pulmonary embolism Right lower lobe pulmonary infarct Right lower extremity DVT Hemoptysis secondary to PE H/O factor V Leiden mutation ? Unsure if Coumadin failure --CTA:Extensive bilateral pulmonary emboli most prominently involving the right lower lobe artery. Airspace opacity in the right lower lung may represent pulmonary infarct. No right heart strain is seen. --Venous Doppler:Right lower extremity DVT. --ECHO: Left ventricle wall motion is normal. EF 60 to 65%. Right ventricle is normal in size and function. Doppler findings do not suggest pulmonary hypertension. No significant valvular heart disease. --INR 2.9>2.1>1.8 --Coumadin discontinued --Appreciate Pulmonology and Oncology Input --Discussed with Dr.Nilesh Ramirez on 03/05/22: Ok to hold Heparin/Coumadin given INR 2.9. Plan to start on Eliquis as able -Saturating well on room air Continue incentive spirometer Antitussives IV heparin transitioned to Eliquis Monitor CBC Hb stable Advised to follow-up with pulmonology with repeated chest x-ray with CBC as outpatient Right breast lesion S/P biopsy Pathology pending Follow-up as outpatient DVT Px: Apixaban CODE STATUS: Full Code Total Time Total Time Spent Total Time Spent (In Minutes): 49 minutes Discharge Plan Discharge Items Patient Disposition: Home - Self-Care Reason For Visit: PE Discharge Diagnosis: Acute bilateral pulmonary embolism Right lower lobe pulmonary infarct Right lower extremity Deep Vein Thrombosis Activity: Per Instructions section Exercise/Sports: Wait until after follow-up appointment Non-emergency contact: Primary Care Provider and Retail Performance Coach Call non-emergency contact if: you have any medication questions, your symptoms worsen, your pain is concerning for you and you have a fever Follow-up/Referrals: Willow Mercedes, DO [Primary Care Provider] - (Date & Time 03/10/2022 11:20 AM Provider Gage Neal MD [facility] ) Diet: Heart Healthy Addtl Attending Provider Instructions: Follow up with your PCP on 03/10/2022 11:20 AM as scheduled Follow up with your Retail Performance Coach with Chest X ray in 10 days as advised by your Retail Performance Coach Consider following with your Food Service Associate Dr.Nilesh ramirez for anticoagulation recommendations --Get Blood Test( CBC) in 1 week and follow up with your Physician --Take Apixaban (Eliquis) 10mg twice a day for 6 more days and then take 5mg twice a day. Seek immediate medical attention if your symptoms reoccur or worsen Please take all medications as instructed on discharge list below. Please call if you have any questions or problems. You can reach a [facility] hospitalist on duty at [facility] 24 hours a day by calling [phone] Pending Studies at Discharge: No Stand-Alone Forms: My [facility] Pro[facility], Smoking Cessation Medications and DC Order Prescriptions: New Eliquis 5 mg tablet 5 mg PO UD Qty: 74 1RF Rx Instructions: Start taking Apixaban 10mg Twice a day for 1 week, then take 5mg twice a day. oxycodone-acetaminophen [Percocet] 5-325 mg Tablet 1 tab PO Q4H PRN (Reason: pain) Qty: 14 0RF polyethylene glycol 3350 [Miralax] 17 gram Powder In Packet 17 g PO DAILY PRN (Reason: constipation) Qty: 30 0RF hydrocodone-homatropine [Hycodan] 5-1.5 mg/5 mL (5 mL) syrup 5 ml PO Q6H PRN (Reason: cough) Qty: 100 0RF Discontinued warfarin 5 mg tablet 5 mg PO DAILY Rx Instructions: Take 5 mg every e, An, Sat and 7.5 mg all other days or as directed by [facility] Discharge Orders: Discharge Order (Routine); Ordered 03/08/22 Ordered By: Moo Lopez Admission Data Admit Date/Time: 03/04/22 17:14 Attending Provider: Moo Lopez Admit Provider: Stephany Estrada Primary Care Provider: Willow Mrecedes Other Providers: Stephany Estrada ; Danni Lopes
== END 2022-03-08 14:15 | disposition home or self-care (01) | DRG 299 ==
LOC: 2S 09:54 → ED 09:54 → 2S 15:14 → SUATTDRO 17:14
DX: E66.9 Obesity, unspecified; I82.811 Embolism and thrombosis of superficial veins of right lower extremity; Z68.39 Body mass index [BMI] 39.0-39.9, adult; Z86.718 Personal history of other venous thrombosis and embolism; I82.441 Acute embolism and thrombosis of right tibial vein; D68.51 Activated protein C resistance; I82.890 Acute embolism and thrombosis of other specified veins; I82.411 Acute embolism and thrombosis of right femoral vein; I26.99 Other pulmonary embolism without acute cor pulmonale; Z79.01 Long term (current) use of anticoagulants; F17.210 Nicotine dependence, cigarettes, uncomplicated